=== PATIENT | female | born 1955 | race Hispanic/Latino ===

== ENCOUNTER 2023-12-17 13:36 | Emergency (ER) | payer SELFPAY ==
[2023-12-17] MEDS ORDERED: ACETAMINOPHEN 500 MG TAB ONE (15:40)
[2023-12-17] MEDS ORDERED: LIDOCAINE 1% 20 ML MDV ONE (16:05)
--- NOTE | 2023-12-17 16:20 | RAD REPORT ---
EXAM DESCRIPTION: CT - [id number] - 12/17/2023 3:28 pm CLINICAL HISTORY: TRAUMA COMPARISON: No comparisons TECHNIQUE: Axial thin cut noncontrast CT images of the head were obtained. Axial thin cut noncontrast CT images of the cervical spine were obtained. Multiplanar reformatted images were generated and reviewed. All CT scans are performed using dose optimization technique as appropriate and may include automated exposure control or mA/KV adjustment according to patient size. FINDINGS: CT HEAD WITHOUT CONTRAST: No acute hemorrhage, hydrocephalus or extra-axial collection is identified.No areas of brain edema or midline shift. The mastoids are clear. Small mucous retention cyst within the right maxillary sinus.The calvarium is intact. CT CERVICAL SPINE WITHOUT CONTRAST: No fracture or subluxation.No prevertebral soft tissues swelling is identified. IMPRESSION: No acute traumatic intracranial or cervical spine findings.
--- NOTE | 2023-12-17 16:29 | ER ---
Nurse's Notes [facility] Name: Kei Lyles Age: 68 yrs Sex: Female : 1955 Arrival Date: 12/17/2023 Time: 13:36 Bed 10 Private MD: Diagnosis: Fall on same level, unspecified;Alcohol use, unspecified;Laceration without foreign body of unspecified part of head-left posterior scalp Presentation: 12/16 13:47 Chief complaint: Patient states: Slipped last night at 0230 AM after drinking alcohol. db Hit head on dresser. No LOC. No active bleeding. No N/V. Coronavirus screen: Client denies travel out of the [place] in the last 14 days. At this time, the client does not indicate any symptoms associated with coronavirus-19. Ebola Screen: Patient denies travel to an Ebola-affected area in the 21 days before illness onset. Initial Sepsis Screen: Does the patient meet any 2 criteria? No. Patient's initial sepsis screen is negative. Does the patient have a suspected source of infection? No. Patient's initial sepsis screen is negative. Risk Assessment: Do you want to hurt yourself or someone else? Patient reports no desire to harm self or others. Onset of symptoms was December 17, 2023. 13:47 Method Of Arrival: Ambulatory db 13:47 Acuity: ASHLEY 3 db Historical: - Allergies: 13:46 No Known Allergies; db - PMHx: 13:46 None; db - PSHx: 13:46 None; db - Immunization history:: Adult Immunizations up to date. - Infectious Disease History:: Denies. - Social history:: Smoking status: Patient reports the use of cigarette tobacco products, smokes .25 packs per day. - Family history:: not pertinent. Screenin:12 [facility] ED Fall Risk Assessment (Adult) History of falling in the last 3 months, hb including since admission Yes- single mechanical fall (1 pt) Confusion or Disorientation No (0 pts) Intoxicated or Sedated No (0 pts) Impaired Gait No (0 pts) Mobility Assist Device Used No (0 pt) Altered Elimination No (0 pt) Score/Fall Risk Level 0 - 2 = Low Risk Oriented to surroundings, Maintained a safe environment, Educated pt \T\ family on fall prevention, incl call for assistance when getting out of bed. Abuse screen: Denies threats or abuse. Denies injuries from another. Nutritional screening: No deficits noted. Tuberculosis screening: No symptoms or risk factors identified. Assessment: 15:48 General: Appears in no apparent distress. uncomfortable, Behavior is calm, cooperative. hb Pain: Pain currently is 10 out of 10 on a pain scale. Neuro: Level of Consciousness is awake, alert, obeys commands, Oriented to person, place, time, situation. Cardiovascular: Patient's skin is warm and dry. Respiratory: Respiratory effort is even, unlabored, Respiratory pattern is regular, symmetrical. GI: No signs and/or symptoms were reported involving the gastrointestinal system. : No signs and/or symptoms were reported regarding the genitourinary system. EENT: No signs and/or symptoms were reported regarding the EENT system. Derm: Skin is pink, warm \T\ dry. Musculoskeletal: Swelling BACK OF HEAD, ABRASION AND LARGE LACERATION NOTED ON LEFT SIDE OF HEAD, BLEEDING CONTROLLED. 15:49 Reassessment: Patient appears in no apparent distress at this time. Patient and/or db family updated on plan of care and expected duration. Pain level reassessed. Patient is alert, oriented x 3, equal unlabored respirations, skin warm/dry/pink. General: Appears in no apparent distress. comfortable, Behavior is calm, cooperative. Pain: Complains of pain in scalp. Neuro: Level of Consciousness is awake, alert, obeys commands, Oriented to person, place, time, situation. Respiratory: Airway is patent Respiratory effort is even, unlabored, Respiratory pattern is regular, symmetrical. Derm: Wound noted scalp. Vital Signs: 13:47 BP 138 / 90; Pulse 64; Resp 17; Temp 97.6; Pulse Ox 97% on R/A; Height 5 ft. 5 in. ; db Pain 10/10; 13:47 Pain Scale: Adult db ED Course: 13:38 Patient arrived in ED. mr 13:42 Arm band placed on. db 13:49 Triage completed. db 13:49 Lio Osorio MD is Attending Physician. carlos 15:12 Clara Forbes, RN is Primary Nurse. hb 15:12 Patient has correct armband on for positive identification. Provided Education on: use hb of call light . 15:30 CT Head C Spine In Process Unspecified. EDMS 15:49 Irrigation on scalp irrigated with normal saline Betadine solution Patient tolerated db well. 16:29 Assist provider with laceration repair on left side of the back of head that was hb between 7.6 to 12.5 cm using rosemary. Set up tray. Performed by Lio Osorio MD Patient tolerated well. 17:02 Patient did not have IV access during this emergency room visit. hb Administered Medications: 15:48 Drug: Acetaminophen PO 1000 mg PO once Route: PO; hb 17:00 Follow up: Response: No adverse reaction hb 16:27 Drug: Lidocaine Infiltration (1 %) 8 ml 5 ml Infiltration once; to bedside {Note: hb ADMINISTERED BY DR OSORIO.} Volume: 5 ml; Route: Infiltration; 16:41 Follow up: Response: No adverse reaction hb 16:41 Drug: Cephalexin PO 500 mg PO once Route: PO; hb 17:00 Follow up: Response: No adverse reaction hb 16:41 Drug: Boostrix Tdap IM 0.5 ml IM once; as a single dose Route: IM; Site: right deltoid; hb 17:00 Follow up: Response: No adverse reaction hb 16:41 Drug: CeFAZolin IM 1 grams IM once Route: IM; Site: left deltoid; hb 17:00 Follow up: Response: No adverse reaction hb Medication: 16:53 Vaccine Information Statement (VIS) provided today. Questions and/or concerns hb addressed. VIS edition date: November 14, 2020. Outcome: 16:29 Discharge ordered by . carlos 17:02 Discharged to home ambulatory, with family, 17:02 Condition: stable 17:02 Discharge instructions given to patient, family, Instructed on discharge instructions, follow up and referral plans. medication usage, wound care, Demonstrated understanding of instructions, follow-up care, medications, wound care, Prescriptions given X 2, 17:04 Patient left the ED. hb Signatures: Dispatcher [employer] EDAZ Lio Osorio MD MD cha Rivera, Mary, Reg Reg Clara Dowd, JUAN RN Mara Talbert RN RN db Corrections: (The following items were deleted from the chart) 16:29 15:48 Musculoskeletal: Swelling BACK OF HEAD, ABRASION AND SMALL LACERATION NOTED, hb BLEEDING CONTROLLED hb 16:53 15:13 VIS not applicable for this client. hb hb 19:07 17:02 Discharge instructions given to patient, family, Instructed on discharge hb instructions, follow up and referral plans. medication usage, wound care, Demonstrated understanding of instructions, follow-up care, medications, wound care, Prescriptions given X 1, hb
--- NOTE | 2023-12-17 16:29 | EDPHYS ---
Physician Documentation [facility] Name: Kei Lyles Age: 68 yrs Sex: Female : 1955 Arrival Date: 12/17/2023 Time: 13:36 Bed 10 Private MD: ED Physician Lio Osorio HPI: 12/16 16:25 This 68 yrs old Female presents to ER via Ambulatory with complaints of Fall carlos Injury, Laceration To Head. Historical: - Allergies: 13:46 No Known Allergies; db - PMHx: 13:46 None; db - PSHx: 13:46 None; db - Immunization history:: Adult Immunizations up to date. - Infectious Disease History:: Denies. - Social history:: Smoking status: Patient reports the use of cigarette tobacco products, smokes .25 packs per day. - Family history:: not pertinent. ROS: 16:25 Constitutional: Negative for fever, chills, and weight loss, Eyes: Negative for injury, carlos pain, redness, and discharge, ENT: Negative for injury, pain, and discharge, Neck: Negative for injury, pain, and swelling, Cardiovascular: Negative for chest pain, palpitations, and edema, Respiratory: Negative for shortness of breath, cough, wheezing, and pleuritic chest pain, Abdomen/GI: Negative for abdominal pain, nausea, vomiting, diarrhea, and constipation, Back: Negative for injury and pain, : Negative for injury, bleeding, discharge, and swelling, MS/Extremity: Negative for injury and deformity, Skin: Negative for injury, rash, and discoloration, Psych: Negative for depression, anxiety, suicide ideation, homicidal ideation, and hallucinations, Allergy/Immunology: Negative for hives, rash, and allergies, Endocrine: Negative for neck swelling, polydipsia, polyuria, polyphagia, and marked weight changes, Hematologic/Lymphatic: Negative for swollen nodes, abnormal bleeding, and unusual bruising, 16:25 Neuro: Positive for headache, of the scalp, Exam: 16:25 Constitutional: This is a well developed, well nourished patient who is awake, alert, carlos and in no acute distress. Eyes: Pupils equal round and reactive to light, extra-ocular motions intact. Lids and lashes normal. Conjunctiva and sclera are non-icteric and not injected. Cornea within normal limits. Periorbital areas with no swelling, redness, or edema. ENT: Nares patent. No nasal discharge, no septal abnormalities noted. Tympanic membranes are normal and external auditory canals are clear. Oropharynx with no redness, swelling, or masses, exudates, or evidence of obstruction, uvula midline. Mucous membranes moist. Neck: Trachea midline, no thyromegaly or masses palpated, and no cervical lymphadenopathy. Supple, full range of motion without nuchal rigidity, or vertebral point tenderness. No Meningismus. Chest/axilla: Normal chest wall appearance and motion. Nontender with no deformity. No lesions are appreciated. Cardiovascular: Regular rate and rhythm with a normal S1 and S2. No gallops, murmurs, or rubs. Normal PMI, no JVD. No pulse deficits. Respiratory: Lungs have equal breath sounds bilaterally, clear to auscultation and percussion. No rales, rhonchi or wheezes noted. No increased work of breathing, no retractions or nasal flaring. Abdomen/GI: Soft, non-tender, with normal bowel sounds. No distension or tympany. No guarding or rebound. No evidence of tenderness throughout. Back: No spinal tenderness. No costovertebral tenderness. Full range of motion. Skin: Warm, dry with normal turgor. Normal color with no rashes, no lesions, and no evidence of cellulitis. MS/ Extremity: Pulses equal, no cyanosis. Neurovascular intact. Full, normal range of motion. Neuro: Awake and alert, GCS 15, oriented to person, place, time, and situation. Cranial nerves II-XII grossly intact. Motor strength 5/5 in all extremities. Sensory grossly intact. Cerebellar exam normal. Normal gait. Psych: Awake, alert, with orientation to person, place and time. Behavior, mood, and affect are within normal limits. 16:25 Head/face: Noted is contusion, that is deep, hematoma, that is mild, of the left side of the back of head, a laceration(s), that is deep, 3 cm(s), swelling, that is mild, of the left side of the back of head, Vital Signs: 13:47 BP 138 / 90; Pulse 64; Resp 17; Temp 97.6; Pulse Ox 97% on R/A; Height 5 ft. 5 in. ; db Pain 10/10; 13:47 Pain Scale: Adult db Laceration: 16:25 Wound Repair of 4cm ( 1.6in ) subcutaneous laceration to left side of the back of head carlos and scalp. Irregularly shaped.. Skin/tissue flap noted.. Distal neuro/vascular/tendon intact. Anesthesia: Local anesthetic administered with 8 mls of 1% lidocaine. Wound prep: Extensive cleansing by me, Wound explored, Copious irrigation. Skin closed with 6 belia Belia using staple gun. Dressed with pressure dressing, non-adherent dressing. Patient tolerated well. MDM: 13:49 Patient medically screened. [facility] 16:31 Differential diagnosis: abrasion, closed head injury, contusion, fracture, laceration, carlos multiple trauma, sprain, strain. Data reviewed: vital signs, nurses notes, radiologic studies, CT scan. Consideration of Admission/Observation Escalation of care including admission/observation considered. I considered the following discharge prescriptions or medication management in the emergency department Medications were administered in the Emergency Department. See MAR. Independent interpretation of the following test(s) in the Emergency Department CT Scan: My interpretation is ct brain. Test considered but Not performed: Labs: no labs. Historians other than the Patient: Family Member: and daughter well informed. Care significantly affected by the following chronic conditions: Hypertension, Obesity, alcohol use. Counseling: I had a detailed discussion with the patient and/or guardian regarding the historical points, exam findings, and any diagnostic results supporting the discharge/admit diagnosis, radiology results, the need for outpatient follow up, for definitive care, a family practitioner. 12/16 13:50 Order name: CT Head C Spine; Complete Time: 16:25 [facility] 12/16 16:22 Order name: Dressing - Wound; Complete Time: 16:28 [facility] 12/16 16:22 Order name: Gloves, Sterile; Complete Time: 16:28 [facility] 12/16 16:22 Order name: Setup Suture Tray; Complete Time: 16:28 [facility] Administered Medications: 15:48 Drug: Acetaminophen PO 1000 mg PO once Route: PO; hb 17:00 Follow up: Response: No adverse reaction hb 16:27 Drug: Lidocaine Infiltration (1 %) 8 ml 5 ml Infiltration once; to bedside {Note: hb ADMINISTERED BY DR OSORIO.} Volume: 5 ml; Route: Infiltration; 16:41 Follow up: Response: No adverse reaction hb 16:41 Drug: Cephalexin PO 500 mg PO once Route: PO; hb 17:00 Follow up: Response: No adverse reaction hb 16:41 Drug: Boostrix Tdap IM 0.5 ml IM once; as a single dose Route: IM; Site: right deltoid; hb 17:00 Follow up: Response: No adverse reaction hb 16:41 Drug: CeFAZolin IM 1 grams IM once Route: IM; Site: left deltoid; hb 17:00 Follow up: Response: No adverse reaction hb Disposition Summary: 12/17/23 16:29 Discharge Ordered Notes: Location: Home carlos Problem: new carlos Symptoms: have improved carlos Condition: Stable carlos Diagnosis - Fall on same level, unspecified carlos - Alcohol use, unspecified carlos - Laceration without foreign body of unspecified part of head - left posterior scalp carlos Followup: carlos - With: Private Physician - When: 2 - 3 days - Reason: Recheck today's complaints, Continuance of care, Re-evaluation by your physician Discharge Instructions: - Discharge Summary Sheet carlos - Facial or Scalp Contusion carlos - Head Injury, Adult carlos - Laceration Care, Adult carlos - Laceration Care, Adult, [id number] carlos - Head Injury, Adult, [id number] carlos - Facial or Scalp Contusion, [id number] [facility] Forms: - Medication Reconciliation Form [facility] - Antibiotic Education [facility] - Prescription Opioid Use [facility] - Patient Portal Instructions [facility] - Leadership Thank You Letter [facility] - Work release form [facility] Prescriptions: - Cephalexin 500 mg Oral capsule - take 1 capsule ORAL route every 6 hours for 7 days; 29 capsule; Refills: 0, [facility] Product Selection Permitted - Tylenol 325 mg Oral tablet - take 2 tablets ORAL route every 6 hours as needed; 40 tablet; Refills: 0, [facility] Product Selection Permitted Signatures: Dispatcher [employer] Lio Cunningham MD MD cha Baxter, Heather RN RN Mara Talbert RN RN db
[2023-12-17] MEDS ORDERED: CEPHALEXIN 250 MG CAP ONE (16:31)
[2023-12-17] MEDS ORDERED: WATER FOR INJ,STERILE 10 ML ONE (16:32)
[2023-12-17] MEDS ORDERED: TDAP (DIPHTH,PERTUSS(ACELL),TET VAC) 0.5 ML VIAL IMVAC ONE (16:32)
[2023-12-17] MEDS ORDERED: CEFAZOLIN SODIUM 1 GM/VIAL ONE (16:32)
[2023-12-17 17:09] VITALS: BP 138/90; TEMP 97.6; O2SAT 97
== END 2023-12-17 17:04 | disposition home or self-care (01) ==
LOC: ER 13:36
PROC: 0HQ0XZZ Repair Scalp Skin, External Approach (ICD-10-PCS; principal; 2023-12-17)
DX: S01.01XA Laceration without foreign body of scalp, initial encounter (principal); F10.90 Alcohol use, unspecified, uncomplicated; W18.30XA Fall on same level, unspecified, initial encounter; F17.210 Nicotine dependence, cigarettes, uncomplicated
CPT/HCPCS: 12032; 70450; 72125; 96372; 99284; J0690; J2001